=== PATIENT | female | born 1970 | race Caucasian/White ===

== ENCOUNTER → 2016-04-07 | Outpatient (REF) | payer MEDICARE, BC | LOC: M SFHCWAGY 08:53 | PROVIDERS: ATTEND Nurse Practitioner Women's Health | DX: Z12.4 Encounter for screening for malignant neoplasm of cervix (principal) ==

== ENCOUNTER → 2016-04-07 | Outpatient (CLI) | payer MEDICARE, BC ==
--- NOTE | 2016-04-14 09:33 | REPMRS ---
Patient History Benign excisional biopsy of the right breast, 2014. Benign stereotactic core biopsy of the right breast, 2012. Taking unspecified hormones for 8 years. Digital Woman Screen Mammo: April 07, 2016 - Exam #: [id number] Bilateral CC and MLO view(s) were taken. Technologist: Sarah Bosch, Technologist Prior study comparison: 2014, bilateral mammogram, performed at [facility]. FINDINGS: The breast tissue is heterogeneously dense. This may lower the sensitivity of mammography. There is no evidence of cancer on this mammogram. The previously noted metallic clip in the right retroareolar region is no longer visualized. No significant changes when compared with prior studies. ASSESSMENT: BI-RADS/ACR category 2 mammogram. Benign finding(s). Recommendation Routine screening mammogram of both breasts in 1 year (for women over age 40). This mammogram was interpreted with the aid of an FDA-approved computer-aided dectection system. Electronically Signed By: Gurinder Hu MD 04/14/16 0933
== END ==
LOC: M WHC 08:09
PROVIDERS: ATTEND Nurse Practitioner Women's Health
DX: R92.2 Inconclusive mammogram (principal); Z92.0 Personal history of contraception; Z12.4 Encounter for screening for malignant neoplasm of cervix
CPT/HCPCS: G0101; G0123; G0202

== ENCOUNTER → 2016-09-11 | Day surgery (SDC) | payer MEDICARE, BC ==
[~2016-09-11] MED LIST: AMAN100C18; BACL1TAB9; CLINDAMYCIN; DEXTROAMP; DIVA500T9; DULO1CAP3; LIDOCAINE 2% MDV 20 ML VIAL As Ordered ONE; LINZ145C; MICROGESTIN; MIDAZOLAM INJ 2 MG/2 ML VIAL (J2250) As Ordered ONE; OMEP20CA3; OXYCODON; TIZANIDINE; TRAM50TA2 PO; XIID5DRO; ceFAZolin 1GM INJ (J0690) As Ordered ONE; fentaNYL 100 MCG/2 ML INJECTION (J3010) As Ordered ONE
--- NOTE | 2016-09-11 14:45 | ROOPDOC ---
[facility] Report Of Operation Report of Operation DATE OF PROCEDURE: 09/11/16 PREOPERATIVE DIAGNOSES: Poor venous access, multiple sclerosis. POSTOPERATIVE DIAGNOSES: Poor venous access, multiple sclerosis. PROCEDURE: Ultrasound and fluoroscopic guided right internal jugular vein MRI implantable Port-A-Cath placement. SURGEON: Orlando Parkinson MD ULTRASOUND TESTER: Tamara Bowen electronics engineering technician INDICATION: Patient is a 45-year-old female with multiple sclerosis who requires multiple blood draws for evaluation of her medical treatment. Patient is having significant difficulty with blood draws due to the multiple cannulation's of the veins in the upper arms. Patient will undergo placement of a Port-A-Cath for access for blood draws and medication instillation. [Risks, benefits and alternative treatment options were discussed with the patient. Alternative treatment options included no intervention with continued conservative management. Risks included but were not limited to infection, bleeding, renal failure requiring hemodialysis, pneumothorax, hemothorax possible need for further open surgical intervention, cerebrovascular accident, myocardial infarction, pulmonary and was, DVT, loss of limb, loss of life, prolonged hospitalization and poor outcome.] Patient agrees and accepts these risks and consents to proceed. ANESTHESIA: Local with monitored anesthesia care. FLOURO TIME:0.1 CONTRAST: None IVF: 300 mL ESTIMATED BLOOD LOSS:Approximately 20 mL. HEPARIN: None PROTAMINE: None COMPLICATIONS: None. DRAINS: None SPECIMENS: None IMPLANTS: Right internal jugular vein MRI implantable Port-A-Cath DESCRIPTION OF PROCEDURE: Patient was taken to angiography suite, placed supine on the operating room table, and after performing a surgical timeout confirming the correct patient and procedure, the patient was prepped and draped in a standard surgical fashion. William Parkinson MD Sep 11, 2016 14:45
[2016-09-11 15:05] VITALS: BP 135/96
--- NOTE | 2016-10-16 10:43 | REPKIM ---
DATE OF PROCEDURE: 09/11/2016 PREOPERATIVE DIAGNOSES: Poor venous access, multiple sclerosis. POSTOPERATIVE DIAGNOSES: Poor venous access, multiple sclerosis. PROCEDURE: Ultrasound and fluoroscopic guided right internal jugular vein MRI implantable Port-A-Cath placement. SURGEON: Orlando Parkinson MD PHYSICIAN ANESTHESIOLOGIST: Tamara Bowen, mining technician. ANESTHESIA: Local with monitored anesthesia care. FLUORO TIME: 0.1 CONTRAST: None INTRAVENOUS FLUIDS: 300 mL ESTIMATED BLOOD LOSS: Approximately 20 mL. HEPARIN: None PROTAMINE: None COMPLICATIONS: None. DRAINS: None SPECIMENS: None IMPLANTS: Right internal jugular vein MRI implantable Port-A-Cath. INDICATION: Patient is a 45-year-old female with multiple sclerosis who requires multiple blood draws for evaluation of her medical treatment. Patient is having significant difficulty with blood draws due to the multiple cannulation's of the veins in the upper arms. Patient will undergo placement of a Port-A-Cath for access for blood draws and medication instillation. [Risks, benefits and alternative treatment options were discussed with the patient. Alternative treatment options included no intervention with continued conservative management. Risks included but were not limited to infection, bleeding, renal failure requiring hemodialysis, pneumothorax, hemothorax possible need for further open surgical intervention, cerebrovascular accident, myocardial infarction, pulmonary and was, DVT, loss of limb, loss of life, prolonged hospitalization and poor outcome.] Patient agrees and accepts these risks and consents to proceed. DESCRIPTION OF PROCEDURE: Patient was taken to angiography suite, placed supine on the operating room table, and after performing a surgical timeout confirming the correct patient and procedure, the patient was prepped and draped in a standard surgical fashion. The ultrasound was used to evaluate the right internal jugular vein, which was noted to be easily compressible, widely patent, and free of thrombus. The ultrasound was used to guide cannulation of the right internal jugular vein with concurrent real-time visualization of the entry of the micropuncture needle into the right internal jugular vein under ultrasound guidance with a hard copy image preserved. The micropuncture wire was advanced through the micropuncture needle, which was upsized to a micropuncture sheath. The wire was advanced through the sheath, which was then used to advance the introducer sheath into the right internal jugular vein. The catheter was then advanced through the right anterior chest wall after anesthetizing the overlying skin with 2% lidocaine. The catheter was advanced through the introducer sheath, which was then removed, and the catheter was positioned with the tip at the superior vena/right atrial junction. The catheter was cut to 18 cm, and then the hub was applied to the catheter. The pocket was created. The hub was placed in the pocket, and then the catheter was tested, which was noted to flush easily and aspirate easily. The Port-a-Cath was the flushed with heparinized saline. The incisions were then closed using #2-0 Vicryl to approximate the deeper layers and #3-0 Monocryl to approximate the skin in a running subcuticular fashion. The puncture wound in the right neck was closed using a #3-0 Monocryl suture in inverted interrupted fashion. Steri-Strips and dressings were applied. Patient tolerated the procedure well. All instrument, sponge, and needle counts were correct at the end of the case. There were no complications. Dr. Parkinson was present for and directed the entire care. Patient was transferred to the holding area and subsequently discharged in stable condition. RADIOLOGIC SUPERVISION INTERPRETATION: The ultrasound of the right internal jugular vein showed the right internal jugular vein to be wildly patent, easily compressible, and free of thrombus. The ultrasound was used to guide cannulation of the right internal jugular vein, after which the internal jugular vein was sequentially dilated under fluoroscopic guidance and an introducer sheath positioned. The catheter advanced through the introducer sheath and positioned with the tip in the superior vena cava/right atrial junction. Final fluoroscopic image showed the port and catheter to be in good position and good alignment with no pneumothorax or hemothorax. The Port-a-Cath is stable for use for access. The tip of the catheter was in the superior vena cava/right atrial junction.
== END | disposition home or self-care (01) ==
LOC: M SDC 11:43 → EDSTATUS 13:00
PROVIDERS: ATTEND Internal Medicine Medical Oncology
DX: G35 Multiple sclerosis (principal)
CPT/HCPCS: 36561; 76937; 77001; C1788; C1894; J0690; J2250; J3010

== ENCOUNTER 2016-11-07 09:35 | Emergency (ER) | payer MEDICARE, BC ==
[~2016-11-07] VITALS: Ht 157.5 cm; Wt 63.6 kg
[2016-11-07] MEDS ORDERED: DIVA500T9 (09:52)
[2016-11-07] MEDS ORDERED: CLINDAMYCIN (09:52)
[2016-11-07] MEDS ORDERED: TIZANIDINE (09:52)
[2016-11-07] MEDS ORDERED: XIID5DRO (09:52)
[2016-11-07] MEDS ORDERED: DEXTROAMP (09:52)
[2016-11-07] MEDS ORDERED: OMEP20CA3 (09:52)
[2016-11-07] MEDS ORDERED: AMAN100C18 (09:52)
[2016-11-07] MEDS ORDERED: OXYCODON (09:52)
[2016-11-07] MEDS ORDERED: LINZ145C (09:52)
[2016-11-07] MEDS ORDERED: DULO1CAP3 (09:52)
[2016-11-07] MEDS ORDERED: MICROGESTIN (09:52)
[2016-11-07] MEDS ORDERED: BACL1TAB9 (09:52)
[2016-11-07] MEDS ORDERED: PERCOCET 5MG/325MG TAB PO ONE (11:30)
[2016-11-07] MEDS ORDERED: TRAM50TA2 PO (12:25)
[2016-11-07 12:32] VITALS: BP 158/92
== END 2016-11-07 12:33 | disposition home or self-care (01) ==
LOC: M ED 09:35
DX: L97.219 Non-pressure chronic ulcer of right calf with unspecified severity (principal); G35 Multiple sclerosis

== ENCOUNTER → 2016-12-14 | Outpatient (REF) | payer MEDICARE, BC ==
[~2016-12-14] MED LIST changes: -LIDOCAINE 2% MDV 20 ML VIAL As Ordered ONE; -MIDAZOLAM INJ 2 MG/2 ML VIAL (J2250) As Ordered ONE; -ceFAZolin 1GM INJ (J0690) As Ordered ONE; -fentaNYL 100 MCG/2 ML INJECTION (J3010) As Ordered ONE
== END ==
LOC: M LAB REF 09:20
PROVIDERS: ATTEND Dermatology
DX: D23.61 Other benign neoplasm of skin of right upper limb, including shoulder (principal)

== ENCOUNTER → 2017-04-04 | Outpatient (REF) | payer MEDICARE, BC ==
[2017-04-04 14:26] LABS: ANION GAP 9 MEQ/L (8-16); BLOOD UREA NITROGEN 15 MG/DL (7-18); CALCIUM LEVEL 8.7 MG/DL (8.5-10.1); CARBON DIOXIDE LEVEL 26 MEQ/L (21-32); CHLORIDE LEVEL 105 MEQ/L (98-107); CREATININE FOR GFR 0.78 MG/DL (0.55-1.30); GLOMERULAR FILTRATION RATE > 60.0 (>58); GLUCOSE, FASTING 140 MG/DL (70-100); POTASSIUM SERUM 4.1 MEQ/L (3.5-5.1); SODIUM LEVEL 140 MEQ/L (136-145)
== END ==
LOC: M LAB REF 13:07
DX: I10 Essential (primary) hypertension (principal)
CPT/HCPCS: 80048

== ENCOUNTER → 2017-10-24 | Outpatient (REF) | payer MEDICARE, BC ==
[2017-10-24 14:15] LABS: CHOLESTEROL LEVEL 180 MG/DL (<200); HDL CHOLESTEROL 48 MG/DL (>40); LDL CHOLESTEROL 101 MG/DL (<100); NON-HDL-C 132 MG/DL; TRIGLYCERIDES LEVEL 157 MG/DL (<150)
[2017-10-24 15:52] LABS: ESTIMATED AVERAGE GLUCOSE 111 MG/DL (60-110); HEMOGLOBIN A1c 5.5 %
== END ==
LOC: M LAB REF 13:26
DX: F90.9 Attention-deficit hyperactivity disorder, unspecified type (principal); E78.00 Pure hypercholesterolemia, unspecified
CPT/HCPCS: 83036

== ENCOUNTER → 2017-10-30 | Outpatient (REF) | payer MEDICARE, BC | LOC: M LABNEURO 13:46 | DX: G35 Multiple sclerosis (principal) | CPT/HCPCS: 36415 ==

== ENCOUNTER 2017-12-17 18:17 | Emergency (ER) | payer MEDICARE, BC ==
[2017-12-17] MEDS ORDERED: MORPHINE 2 MG/ML 1ML SYRINGE (J2270) IV ×2 (19:45)
[2017-12-17 20:28] LABS: HEMOGLOBIN 12.7 g/dl (12.0-15.5); MEAN CORPUSCULAR HEMOGLOBIN 30.5 pg (27.0-33.0); MEAN CORPUSCULAR HGB CONC 34.3 g/dl (32.0-36.5); MEAN CORPUSCULAR VOLUME 88.9 fl (80.0-96.0); PLATELET COUNT, AUTOMATED 264 10^3/uL (150-450); RED BLOOD COUNT 4.16 10^6/uL (4.00-5.40); RED CELL DISTRIBUTION WIDTH 14.3 % (11.5-14.5); WHITE BLOOD COUNT 12.9 10^3/uL (4.0-10.0)
[2017-12-17 20:47] LABS: ERYTHROCYTE SEDIMENTATION RATE 24 mm/hr (0-20)
[2017-12-17 20:48] LABS: ANION GAP 8 MEQ/L (8-16); BLOOD UREA NITROGEN 16 MG/DL (7-18); C REACTIVE PROTEIN QUANTITATIV 1.36 MG/DL (0.00-0.30); CALCIUM LEVEL 8.8 MG/DL (8.5-10.1); CARBON DIOXIDE LEVEL 25 MEQ/L (21-32); CHLORIDE LEVEL 108 MEQ/L (98-107); CREATININE FOR GFR 0.87 MG/DL (0.55-1.30); GLOMERULAR FILTRATION RATE > 60.0 (>58); GLUCOSE, FASTING 120 MG/DL (70-100); POTASSIUM SERUM 4.1 MEQ/L (3.5-5.1); SODIUM LEVEL 141 MEQ/L (136-145)
[2017-12-17] MEDS: ACETAMINOPHEN TAB 650MG DOSE (2X325MG) PO ×2 (21:09)
[2017-12-17] MEDS ORDERED: ISOVUE-370 76% 100ML VIAL (Q9967) As Ordered ×2 (22:30)
[2017-12-18] MEDS: APIXABAN 5 MG TAB (ELIQUIS) PO ×4 (00:03→00:04)
[2017-12-18 00:30] LABS: INR 0.92; PARTIAL THROMBOPLASTIN TIME 24.1 SECONDS (25.4-37.6); PROTHROMBIN TIME 12.5 SECONDS (12.1-14.4)
[2017-12-18 00:48] LABS: TROPONIN I < 0.02 NG/ML (< 0.10)
[2017-12-18 00:48] LABS: NT-PRO BNP 27 PG/ML (<125)
[2017-12-18 09:55] LABS: DRVV SCREEN 39.4 SEC
[2017-12-18 09:57] LABS: PTT LUPUS TYPE ANTICOAG SCREEN 0.9 (0-1.2)
[2017-12-25 00:06] LABS: ANTI THROMBIN 3 ANTIGEN IMMUNO 73 % (72-124); ANTI THROMBIN 3 FUNCT ACTIVITY 106 % (75-135); CARDIOLIPIN IGA ANTIBODY <9 APL U/mL (0-11); CARDIOLIPIN IGG ANTIBODY <9 GPL U/mL (0-14); CARDIOLIPIN IGM ANTIBODY <9 MPL U/mL (0-12); PROTEIN C FUNCTIONAL ACTIVITY 139 % (73-180); PROTEIN S FUNCTIONAL ACTIVITY 83 % (63-140)
[2017-12-25 00:06] LABS: PHOSPHOLIPIDS LEVEL 253 mg/dL (150-250)
== END 2017-12-18 00:19 | disposition home or self-care (01) ==
LOC: M ED 12-18 00:19
DX: I82.601 Acute embolism and thrombosis of unspecified veins of right upper extremity (principal); I10 Essential (primary) hypertension; R91.8 Other nonspecific abnormal finding of lung field; F41.9 Anxiety disorder, unspecified; F32.9 Major depressive disorder, single episode, unspecified; G35 Multiple sclerosis; K22.70 Barrett's esophagus without dysplasia; Z94.84 Stem cells transplant status; Z79.01 Long term (current) use of anticoagulants; R06.02 Shortness of breath; Z79.899 Other long term (current) drug therapy; Z95.828 Presence of other vascular implants and grafts; Z92.21 Personal history of antineoplastic chemotherapy
CPT/HCPCS: Q9967

== ENCOUNTER 2018-03-22 09:00 | Outpatient (CLI) | payer MEDICARE, BC ==
[~2018-03-22] VITALS: Ht 162.6 cm; Wt 54.5 kg
[~2018-03-22 09:00] MED LIST changes: +ADDE30CA3 PO; +ELIQ5TAB PO; +LARI1TAB7; +LISI10TA4; +NITR50CA34; +REXU1TAB; +SODIUM CHLORIDE 0.9% INJ 10 ML SYR IV SCH; +TYSA1INJ IV; +ZONI50CA3
[2018-03-22 09:05] VITALS: BP 134/84
== END 2018-03-22 09:30 | disposition home or self-care (01) ==
LOC: M INFU 09:00
PROVIDERS: ATTEND Psychiatry & Neurology Neurology
DX: G35 Multiple sclerosis (principal)

== ENCOUNTER 2018-04-20 19:12 | Emergency (ER) | payer MEDICARE, BC ==
[~2018-04-20] VITALS: Ht 162.6 cm; Wt 63.6 kg
[~2018-04-20 19:12] MED LIST changes: -SODIUM CHLORIDE 0.9% INJ 10 ML SYR IV SCH
--- NOTE | 2018-04-20 20:26 | REPVR ---
EXAM: US Duplex Left Upper Extremity Veins, Limited EXAM DATE/TIME: 04/20/2018 8:09 PM CLINICAL HISTORY: 47 years old, female; Pain; Arn, upper; Left; Additional info: Pain/hx dvt TECHNIQUE: Real-time Duplex ultrasound of the Left Upper Extremity with 2-D george scale, color Doppler flow and spectral waveform analysis. Limited exam focused on the left upper extremity veins. COMPARISON: No relevant prior studies available. FINDINGS: Left deep veins: Unremarkable. Axillary and brachial veins are patent throughout without thrombus. Normal Doppler waveforms. Normal compressibility and/or augmentation response. Visualized internal jugular and subclavian veins are patent. Left superficial veins: Unremarkable. Visualized cephalic and basilic veins are patent without thrombus. Soft tissues: Unremarkable. IMPRESSION: No acute findings. No evidence of deep vein thrombosis. Electronically signed by: Andrew Gan On 04/20/2018 20:26:12 PM
[2018-04-20 21:32] VITALS: BP 121/79
[2018-04-20] MEDS ORDERED: IBUP-1022 PO (21:35)
--- NOTE | 2018-04-21 08:03 | REP ---
PA and lateral chest: There are no comparisons. The lung ortega are clear. Cardiac size is normal. The vincent, mediastinum, skeletal structures are unremarkable. There is a right IJ Jcyemu-Y-Qakp with the tip in the superior vena cava. Impression: There are no acute cardiopulmonary findings. Electronically Signed by Gurinder Vega MD 04/21/2018 07:55 A
--- NOTE | 2018-04-21 18:45 | ECGEPIP ---
Stationary ECG Study [facility] - ED Test Date: 2018-04-20 Pat Name: RIGOBERTO MORGAN Department: Room: - Gender: F Master Welder: HEATH : 1970 Requested By: LAURA HERNÁNDEZ PA-C. Order Number: [id number] Reading MD: Denisse Villar Measurements Intervals [place] Rate: 81 P: 20 SC: 134 QRS: 52 QRSD: 89 T: 28 QT: 366 QTc: 427 Interpretive Statements SINUS RHYTHM LOW VOLTAGE LIMB PRWP NO PRIOR FOR COMPARISON Electronically Signed On 04-21-2018 18:45:16 EDT by Denisse Villar
== END 2018-04-20 21:44 | disposition home or self-care (01) ==
LOC: M ED 19:12
DX: M79.622 Pain in left upper arm (principal); Z86.718 Personal history of other venous thrombosis and embolism; Z79.899 Other long term (current) drug therapy

== ENCOUNTER 2018-05-03 09:01 | Outpatient (CLI) | payer MEDICARE, BC ==
[~2018-05-03] VITALS: Ht 162.6 cm; Wt 54.5 kg
[~2018-05-03 09:01] MED LIST changes: +IBUP-1022 PO; +SODIUM CHLORIDE 0.9% INJ 10 ML SYR IV SCH
[2018-05-03 09:05] VITALS: BP 133/82
== END 2018-05-03 09:45 | disposition home or self-care (01) ==
LOC: M INFU 09:01
PROVIDERS: ATTEND Psychiatry & Neurology Neurology
DX: G35 Multiple sclerosis (principal)

== ENCOUNTER 2018-06-14 08:32 | Outpatient (CLI) | payer MEDICARE, BC ==
[~2018-06-14] VITALS: Ht 162.6 cm; Wt 54.5 kg
[2018-06-14 08:43] VITALS: BP 152/71
[2018-06-14] MEDS ORDERED: SODIUM CHLORIDE 0.9% INJ 10 ML SYR IV SCH (09:00)
[2018-06-14] MEDS ORDERED: ALTEPLASE 2 MG/2 ML VIAL (J2997 PER 1MG) XX ONE (09:00)
[2018-06-14 12:30] VITALS: BP 131/81
== END 2018-06-14 12:30 | disposition home or self-care (01) ==
LOC: M INFU 08:32
PROVIDERS: ATTEND Surgery Vascular Surgery
DX: G35 Multiple sclerosis (principal); T82.898A Other specified complication of vascular prosthetic devices, implants and grafts, initial encounter; Z45.2 Encounter for adjustment and management of vascular access device
CPT/HCPCS: 36593; J2997

== ENCOUNTER → 2018-06-14 | Outpatient (CLI) | payer MEDICARE, BC ==
[~2018-06-14] MED LIST changes: -DULO1CAP3; +DULO1CAP6; -OMEP20CA3; +OMEP20CA4; -SODIUM CHLORIDE 0.9% INJ 10 ML SYR IV SCH
== END ==
LOC: M INFU 08:30
PROVIDERS: ATTEND Psychiatry & Neurology Neurology
DX: G35 Multiple sclerosis (principal); Z53.9 Procedure and treatment not carried out, unspecified reason

== ENCOUNTER → 2018-08-15 | Outpatient (REF) | payer MEDICARE, BC ==
[2018-08-15 15:53] LABS: APPEARANCE, URINE HAZY (CLEAR); BACTERIA, URINE AUTO 1+ (NEGATIVE); BILIRUBIN, URINE AUTO NEGATIVE (NEGATIVE); BLOOD, URINE BLOOD NEGATIVE (NEGATIVE); COLOR, URINE YELLOW (YELLOW); GLUCOSE, URINE (UA) AUTO NEGATIVE (NEGATIVE); KETONE, URINE AUTO NEGATIVE (NEGATIVE); LEUKOCYTE ESTERASE, URINE AUTO NEGATIVE (NEGATIVE); NITRITE, URINE AUTO NEGATIVE (NEGATIVE); PROTEIN, URINE AUTO NEGATIVE (NEGATIVE); RBC, URINE AUTO 1 /HPF (0-3); SPECIFIC GRAVITY URINE AUTO 1.015 (1.002-1.035); SQUAMOUS EPITHELIAL CELL UR AU 0 /HPF (0-6); UROBILINOGEN, URINE AUTO 0.2 mg/dL (0.0-2.0); WBC, URINE AUTO 1 /HPF (0-3)
[2018-08-15 15:56] LABS: BASO % 0.1 % (0.0-1.0); EOS # 0.7 10^3/uL (0.0-0.50); EOS % 7.7 % (0.0-3.0); HEMATOCRIT 46.6 % (36.0-47.0); HEMOGLOBIN 15.2 g/dl (12.0-15.5); LYMPH # 2.3 10^3/uL (1.5-4.5); LYMPH % 27.2 % (24.0-44.0); MEAN CORPUSCULAR HEMOGLOBIN 30.3 pg (27.0-33.0); MEAN CORPUSCULAR HGB CONC 32.6 g/dl (32.0-36.5); MONO # 0.4 10^3/uL (0.0-0.8); MONO % 4.5 % (0.0-5.0); NEUTROPHILS # 5.1 10^3/uL (1.8-7.7); NEUTROPHILS % 60.3 % (36.0-66.0); PLATELET COUNT, AUTOMATED 377 10^3/uL (150-450); RED BLOOD COUNT 5.01 10^6/uL (4.00-5.40); WHITE BLOOD COUNT 8.4 10^3/uL (4.0-10.0)
[2018-08-15 16:17] LABS: ALT/SGPT 55 U/L (12-78); BILIRUBIN,DIRECT < 0.1 MG/DL (0.0-0.2); BILIRUBIN,TOTAL 0.3 MG/DL (0.2-1.0); BLOOD UREA NITROGEN 14 MG/DL (7-18); CALCIUM LEVEL 9.7 MG/DL (8.5-10.1); CARBON DIOXIDE LEVEL 26 MEQ/L (21-32); CHLORIDE LEVEL 103 MEQ/L (98-107); CREATININE FOR GFR 0.94 MG/DL (0.55-1.30); GLOMERULAR FILTRATION RATE > 60.0 (>58); GLUCOSE, FASTING 79 MG/DL (70-100); PHOSPHORUS LEVEL 3.3 MG/DL (2.5-4.9); POTASSIUM SERUM 4.2 MEQ/L (3.5-5.1); RHEUMATOID FACTOR QUANT < 10.0 IU/ML (<15.0); SODIUM LEVEL 137 MEQ/L (136-145); TOTAL PROTEIN 8.3 GM/DL (6.4-8.2)
[2018-08-15 16:48] LABS: ERYTHROCYTE SEDIMENTATION RATE 8 mm/hr (0-20)
[2018-08-17 14:16] LABS: ANTINUCLEAR ANTIBODIES DIRECT Negative (Negative); SJOGREN'S ANTI SS-A <0.2 AI (0.0-0.9); SJOGREN'S ANTI SS-B <0.2 AI (0.0-0.9)
== END ==
LOC: M LABNEURO 11:48
PROVIDERS: ATTEND Nurse Practitioner Family
DX: R21 Rash and other nonspecific skin eruption (principal)

== ENCOUNTER 2018-10-21 11:02 | Day surgery (SDC) | payer MEDICARE, BC ==
[~2018-10-21] VITALS: Ht 160 cm; Wt 64.9 kg
[~2018-10-21 11:02] MED LIST changes: +AMAN100T PO; +BACL1TAB9 PO; +DULO1CAP6 PO; +FLON1SPR; +LARI1TAB7 PO; +LISI10TA4 PO; +NITR50CA40 PO; +OCUVTAB4 PO; +REXU1TAB PO; +RIZA10TA4 PO; +ZONI25CA2 PO
[2018-10-21] MEDS ORDERED: PROPOFOL 500 MG/50 ML VIAL As Ordered ONE (11:33)
[2018-10-21] MEDS ORDERED: LIDOCAINE 2% INJ 100 MG/5 ML SDV (FOR ANES.) As Ordered ONE (11:33)
[2018-10-21] MEDS ORDERED: fentaNYL 100 MCG/2 ML INJECTION (J3010) As Ordered ONE (11:34)
[2018-10-21] MEDS: NS 1,000 ML IV ONE (12:00)
--- NOTE | 2018-10-21 12:27 | ROOR ---
Patient Name: Desirae Jones Procedure Date: 10/21/2018 12:10 PM Date of : 1970 Age: 47 Room: [facility] Gender: Female Note Status: Finalized Procedure: Upper Endoscopy + Biopsies Indications: Heartburn, Follow-up of Vernon's esophagus Providers: Serafin Brunson MD Referring MD: LUKE LIZ MD Requesting Provider: Medicines: Monitored Anesthesia Care Complications: No immediate complications. Procedure: Pre-Anesthesia Assessment: - The heart rate, respiratory rate, oxygen saturations, blood pressure, adequacy of pulmonary ventilation, and response to care were monitored throughout the procedure. The Endoscope was introduced through the mouth, and advanced to the second part of duodenum. The upper GI endoscopy was accomplished without difficulty. The patient tolerated the procedure well. Findings: The Z-line was irregular and was found 35 cm from the incisors. Multiple biopsies were obtained with cold forceps for evaluation to rule out Vernon's Esophagus randomly at the gastroesophageal junction. A small hiatal hernia was present. Localized mild inflammation characterized by erosions, erythema and aphthous ulcerations was found in the gastric antrum. Biopsies were taken with a cold forceps for Helicobacter pylori testing. The exam of the duodenum was otherwise normal. Impression: - Z-line irregular, 35 cm from the incisors. - Small hiatal hernia. - Mucosal changes suspicious for gastritis. Biopsied. - Multiple biopsies were obtained at the gastroesophageal junction. - The examination was otherwise normal. Recommendation: - Patient has a contact number available for emergencies. The signs and symptoms of potential delayed complications were discussed with the patient. Return to normal activities tomorrow. Written discharge instructions were provided to the patient. - High fiber diet. - Discharge patient to home. - Continue present medications. - Await pathology results. - Telephone GI clinic for pathology results in 1 week. - Repeat upper endoscopy for surveillance based on pathology results. - Return to referring physician. - The findings and recommendations were discussed with the patient's family. Serafin Brunson MD Serafin Brunson MD 10/21/2018 12:26:53 PM Electronically signed by Serafin Brunson MD Number of Addenda: 0 Note Initiated On: 10/21/2018 12:10 PM Estimated Blood Loss: Estimated blood loss: none.
--- NOTE | 2018-10-21 12:49 | ROOR ---
Patient Name: Desirae Jones Procedure Date: 10/21/2018 12:11 PM Date of : 1970 Age: 47 Room: [facility] Gender: Female Note Status: Finalized Procedure: Total Colonoscopy to Cecum Indications: High risk colon cancer surveillance: Personal history of colonic polyps Providers: Serafin Brunson MD Referring MD: LUKE LIZ MD Requesting Provider: Medicines: Monitored Anesthesia Care Complications: No immediate complications. Procedure: Pre-Anesthesia Assessment: - The heart rate, respiratory rate, oxygen saturations, blood pressure, adequacy of pulmonary ventilation, and response to care were monitored throughout the procedure. The Colonoscope was introduced through the anus and advanced to the cecum, identified by appendiceal orifice and ileocecal valve. The colonoscopy was performed without difficulty. The patient tolerated the procedure well. The quality of the bowel preparation was excellent. Findings: The perianal and digital rectal examinations were normal. Internal hemorrhoids were found during retroflexion. The hemorrhoids were small. No other significant abnormalities were identified in a careful examination of the remainder of the colon. The exam was otherwise without abnormality on direct and retroflexion views. Impression: - Internal hemorrhoids. - The examination was otherwise normal on direct and retroflexion views. - No specimens collected. - The exam was otherwise normal to the cecum. Recommendation: - Patient has a contact number available for emergencies. The signs and symptoms of potential delayed complications were discussed with the patient. Return to normal activities tomorrow. Written discharge instructions were provided to the patient. - High fiber diet. - Discharge patient to home. - Continue present medications. - Repeat colonoscopy in 5 years for screening purposes. - Return to referring physician. - The findings and recommendations were discussed with the patient's family. Serafin Brunson MD Serafin Brunson MD 10/21/2018 12:49:32 PM Electronically signed by Serafin Brunson MD Number of Addenda: 0 Note Initiated On: 10/21/2018 12:11 PM Estimated Blood Loss: Estimated blood loss: none.
[2018-10-21 13:26] VITALS: BP 132/78
== END 2018-10-21 13:39 | disposition home or self-care (01) ==
LOC: M OPP 11:02
PROVIDERS: ATTEND Internal Medicine Gastroenterology
DX: Z12.11 Encounter for screening for malignant neoplasm of colon (principal); Z86.010 Personal history of colon polyps; K64.8 Other hemorrhoids; K22.8 Other specified diseases of esophagus; K44.9 Diaphragmatic hernia without obstruction or gangrene; K31.89 Other diseases of stomach and duodenum; K22.70 Barrett's esophagus without dysplasia; R12 Heartburn; Z79.899 Other long term (current) drug therapy; Z88.8 Allergy status to other drugs, medicaments and biological substances; Z91.018 Allergy to other foods
CPT/HCPCS: 43239; 88305; G0105; J3010

== ENCOUNTER → 2019-01-01 | Outpatient (CLI) | payer MEDICARE, BC ==
[~2019-01-01] MED LIST changes: +NITR1CAP27 PO; -NITR50CA40 PO; +OMEP-172; -OMEP20CA4; -RIZA10TA4 PO; +RIZA10TA58 PO
--- NOTE | 2019-01-01 12:46 | REP ---
Clinical: Fibroid. Technique: Transabdominal pelvic ultrasound followed by transvaginal examination for better evaluation of the endometrium and adnexa with color Doppler evaluation of the ovaries . Findings: Enlarged anteverted myomatous uterus measures 10.9 x 6.7 x 7.6 cm and includes 5.9 x 4.8 x 5.9 cm fibroid extending to the fundus and 1.5 x 1.6 x 2.0 cm lower uterine segment fibroid. Findings cause mass effect on the endometrial canal which is incompletely evaluated and poorly defined. No obvious endocervical fluid noted. The bilateral ovaries are normal in appearance and vascularity without torsion. Right ovary measures 2.0 x 1.8 x 2.1 cm (RI 0.59). Left ovary measures 2.1 x 1.3 x 1.8 cm (RI 0.63). Bladder is normal in appearance and measures 8.4 x 4.7 x 6.1 cm. Impression: 1. Enlarged myomatous uterus. 2. Normal bilateral ovaries. Electronically Signed by Jarek Bower MD 01/01/2019 12:39 P
== END ==
LOC: M RAD 10:56
PROVIDERS: ATTEND Nurse Practitioner Women's Health
DX: N85.2 Hypertrophy of uterus (principal); D25.9 Leiomyoma of uterus, unspecified

== ENCOUNTER → 2020-07-01 | Outpatient (CLI) | payer MEDICARE, BC ==
[~2020-07-01] MED LIST changes: +LISI10TA22; +LISI10TA22 PO; -LISI10TA4; -LISI10TA4 PO; -OMEP-172; +OMEP1CAP73; +ZONI25CA13 PO; -ZONI25CA2 PO; +ZONI50CA11; -ZONI50CA3
--- NOTE | 2020-07-03 00:48 | ECWPNPC ---
PATIENT NAME: RIGOBERTO MORGAN : 1970 GENDER: FEMALE VISIT DATE: 07/01/2020 DISCHARGE DATE: 07/01/20937 VISIT LOCKED DATE TIME: PHYSICIAN: NINO XIAO RESOURCE: NINO XIAO REASON FOR APPOINTMENT 1. NECK/BACK HISTORY OF PRESENT ILLNESS DEPRESSION SCREENING: PHQ-2 (2015 EDITION) LITTLE INTEREST OR PLEASURE IN DOING THINGS?NOT AT ALL FEELING DOWN, DEPRESSED, OR HOPELESS?NOT AT ALL TOTAL SCORE0 GENERAL: HPI 49-YEAR-OLD FEMALE IN FOR INITIAL PAIN CONSULT REGARDING NECK AND BACK PAIN. PATIENT ADMITS THE PAIN HAS BEEN PRESENT FOR SEVERAL YEARS. PATIENT DOES HAVE A HISTORY OF MULTIPLE SCLEROSIS. PATIENT ADMITS TO BEING ON GABAPENTIN IN THE PAST AND STATES THAT IT ONLY MADE HER TIRED. SHE DOES ADMIT TO RADICULAR SYMPTOMS DOWN HER LEFT ARM.. - - -. FALL RISK SCREENING: SCREENING ONE FALLS REPORTED IN THE LAST YEAR WITH INJURY. PATIENT DENIES TREATMENT.. PAIN SCREENING: PATIENT HAS A COMPLAINT OF ACUTE OR CHRONIC PAIN :YES LOCATION OF PAIN:NECK, BOTH SHOULDERS, UPPER BACK INTENSITY OF PAIN (SCALE OF 1 TO 10):2 WHAT DOES YOUR PAIN FEEL LIKE:INTERMITTENT, THROBBING, SHOOTING ELECTRICAL SHOCKS, NUMBNESS DURATION:INTERMITTENT, AWAKENS FROM SLEEP PAIN IS INCREASED BY:ACTIVITIES, PROLONGED STANDING PAIN IS DECREASED BY:USE OF PAIN MEDICATIONS, SITTING, OTHERS MYOFASCIAL DUONG RUFF HELPS SOME NURSING NOTE: - - -. PAIN CENTER INTAKE QUESTIONS: DO YOU HAVE A HISTORY OF MRSA? :NO DO YOU TAKE A BLOOD THINNERS? :NO DO YOU HAVE ANY BLEEDING DISORDERS? :NO ANY NEW NUMBNESS OR WEAKNESS IN YOUR LEGS OR ARMS? :NO ANY PACEMAKER,DEFIBRILLATOR, OR DORSAL COLUMN STIMULATOR? :NO DO YOU HAVE ANY RASHES OR OPEN SORES? :YES FACIAL SORES . PATIENT IS BEING TREATED BY DERMATOLOGY. ARE YOU ALLERGIC TO IV DYE? :NO ARE YOU DIABETIC? :NO ANY NEW PROBLEMS WITH YOUR MEDICATIONS? :NO HAVE YOU RECEIVED A VACCINE IN THE PAST 30 DAYS? :NO SECOND COVID VACCINATION 05/18/2020 DO YOU PLAN TO RECEIVE A VACCINE IN THE NEXT 21 DAYS? :NO DO YOU NEED ANY PRESCRIPTION? :NO DO YOU TAKE ANY IMMUNOSUPPRESSIVE MEDICATIONS? :YES LAST DOSE 2017 AND PATIENT IS IN THE PROCESS OF RESTARTING THE IMMUNOSUPPRESSANTS, TYSARBRI. IS THERE A CHANCE YOU COULD BE ? :NO ARE YOU BREAST FEEDING? :NO CURRENT MEDICATIONS TAKING BACLOFEN 20 MG TABLET 2 TABLETS WITH FOOD OR MILK ORALLY THREE TIMES A DAY TAKING AMANTADINE HCL 100 MG CAPSULE 2 CAPSULES ORALLY TWICE A DAY TAKING ADDERALL XR 30 MG CAPSULE EXTENDED RELEASE 24 HOUR 1 CAPSULE IN THE MORNING ORALLY ONCE A DAY TAKING MAXALT 10 MG TABLET 1 TABLET ORALLY NEEDED FOR HEADAHE TAKING DULOXETINE HCL 60 MG CAPSULE DELAYED RELEASE PARTICLES 1 CAPSULE ORALLY TWICE DAILY TAKING LISINOPRIL 10 MG TABLET 1 TABLET ORALLY ONCE A DAY TAKING AMANTADINE HCL 100 MG CAPSULE 1 CAPSULE ORALLY TWICE DAILY TAKING MULTIVITAMIN - TABLET 1 TABLET ORALLY ONCE A DAY TAKING D3 MAXIMUM STRENGTH 125 MCG (5000 UT) CAPSULE DIRECTED ORALLY TAKING BLACK ELDERBERRY(VELASQUEZ-FLOWER) 575 MG CAPSULE 2000 MG DIRECTED ORALLY TAKING FISH OIL 1200 MG CAPSULE 1 CAPSULE ORALLY FOUR TIMES DAILY TAKING ASHWAGANDHA 500 MG CAPSULE DIRECTED ORALLY TAKING B12 FOLATE 800-800 MCG CAPSULE 1000 MG DIRECTED ORALLY ONCE DAILY TAKING FIBER - POWDER DIRECTED ORALLY TAKING REXULTI 0.5 MG TABLET 1 TABLET ORALLY ONCE A DAY TAKING NITROFURANTOIN MACROCRYSTAL 50 MG CAPSULE TAKE ONE CAPSULE BY MOUTH EVERY DAY NOT-TAKING TIZANIDINE HCL 4 MG TABLET 1 TABLET NEEDED ORALLY EVERY 8 HRS NOT-TAKING OCREVUS 300 MG/10ML SOLUTION DIRECTED INTRAVENOUS NOT-TAKING ZONISAMIDE 100 MG CAPSULE 1 CAPSULE ORALLY ONCE A DAY NOT-TAKING PERCOCET 7.5-325 MG TABLET 1 TABLET NEEDED ORALLY EVERY 6 HRS NOT-TAKING ZONISAMIDE 50 MG CAPSULE 1 CAPSULE ORALLY TWICE A DAY NOT-TAKING METHYLPREDNISOLONE 1 TAB ORAL 125MG NOT-TAKING LISINOPRIL 10 MG TABLET 1 TAB ORALLY DAILY NOT-TAKING CYMBALTA 60 MG CAPSULE DELAYED RELEASE PARTICLES 2 CAPSULES ORALLY ONCE A DAY NOT-TAKING NITROFURANTOIN 50 MG TABLET 1 TAB(S) ORALLY ONCE A DAY NOT-TAKING ZONISAMIDE 100 MG CAPSULE TAKE ONE CAPSULE BY MOUTH AT BEDTIME ORAL NOT-TAKING MICROGESTIN FE 1.5/30 1.5-30 MG-MCG TABLET 1 TABLET ORALLY DAILY, PT SKIPS PLACEBE PILLS NOT-TAKING ADDERALL 30 MG TABLET 1 TABLET ORALLY THREE TIMES DAILY NEEDED, NOTES: MAUREEN NOT-TAKING XIIDRA 5 % SOLUTION 1 DROP INTO AFFECTED EYE OPHTHALMIC TWICE A DAY NOT-TAKING OMEPRAZOLE 40 MG CAPSULE DELAYED RELEASE 1 CAPSULE ORALLY ONCE A DAY NOT-TAKING LINZESS 145 MCG CAPSULE 1 CAPSULE ORALLY ONCE A DAY NOT-TAKING DEPAKOTE 500 MG TABLET DELAYED RELEASE 1 TABLET ORALLY TWICE A DAY NOT-TAKING TYSABRI 300 MG/15ML CONCENTRATE PER ORDER INTRAVENOUS ONCE A MONTH NOT-TAKING TORSEMIDE 10 MG TABLET 1 TABLET ORALLY ONCE A DAY NOT-TAKING DULERA 100 MCG/5MCG 2 PUFFS ORALLY BID MEDICATION LIST REVIEWED AND RECONCILED WITH THE PATIENT PAST MEDICAL HISTORY RELAPSINGAND REMITTING MS GEN. FATIGUE R/T MS HIGH-GRADE HEADACHES ACNE DEPRESSION URINARY RETENTION SAW DR. VELASCO. 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 1 SON(S) , 1 DAUGHTER(S) - HEALTHY. NO KNOWN HX OF BREAST OR OVARIAN CA. DENIES FAMILY HISTORY OF SKIN CANCER. SOCIAL HISTORY GENERAL: TOBACCO USE ARE YOU A:NONSMOKER LATEX QUESTIONNAIRE LATEX ALLERGY : HAVE YOU EVER DEVELOPED ANY TYPE OF REACTION AFTER HANDLING LATEX PRODUCTS SUCH RUBBER GLOVES, CONDOMS, DIAPHRAGMS, BALLOONS, SOCKS, OR UNDERWEAR?YES LATEX ALLERGY : HAVE YOU EVER DEVELOPED ANY TYPE OF REACTION DURING OR AFTER DENTAL APPOINTMENT, VAGINAL/RECTAL EXAMINATION, SURGICAL PROCEDURE, OR ANY OTHER EXPOSURE?NO LATEX RISK : HAVE YOU EVER HAD ANY DIFFICULTY BREATHING OR HIVES AFTER EATING OR HANDLING ANY FRUITS, OR VEGETABLES; SUCH KIWI, BANANAS, STONE FRUITS, OR CHESTNUTSYES - PLEASE INDICATE : KIWI ANAPHYLACTIC LATEX RISK : DO YOU HAVE A PREVIOUS PERSONAL HISTORY OF MORE THAN NINE SURGERIES, SPINA BIFIDA, OR REPEATED CATHERIZATIONS? NO LATEX RISK : ARE YOU FREQUENTLY EXPOSED TO LATEX PRODUCTS IN YOUR OCCUPATION?NO DATE ASKED : 07/01/2020 ALCOHOL USE: OCCASIONAL. BMI CARE GOAL FOLLOW-UP ABOVE NORMAL BMI FOLLOW-UPWEIGHT MONITORING CAFFEINE CAFFEINE USE?YES HOW OFTEN AND HOW MUCH? 1 CUP OF COFFEE DAILY SEXUAL HX HAD SEX IN THE LAST 12 MONTHS (VAGINAL, ORAL, OR ANAL)?YES WITHMEN ONLY USE PROTECTION?NO LMP:TAKES ACTIVE BCP HAVE YOU EVER HAD AN STD?YES OTHER?YES HERPES?NO SYPHILIS?NO GC?NO CHLAMYDIA?NO HIV / HEP-C SCREENING HIV TEST OFFERED TO PATIENT:YES DATE OFFERED:04/07/2016 TEST ACCEPTED:NO REASON:PATIENT DECLINED CONGREGATIONAL [id number] NONE LANGUAGE MOHAWK. EDUCATION LEVEL OF EDUCATION:FINISHED COLLEGE LEARNING BARRIERS / SPECIAL NEEDS CHANGE FROM LAST VISIT?NO BARRIERS TO LEARNING?NO HEARING IMPAIRED?NO VISION IMPAIRED?YES :CORRECTIVE LENSES CONTACTS COGNITIVELY IMPAIRED?NO READINESS TO LEARN?YES LEARNING PREFERENCES?NO LEARNING CAPABILITIES PRESENT?YES EMOTIONAL BARRIERS?NO SPECIAL DEVICES?NO QUILL LAYER NEEDED?NO OCCUPATION: DISABILITY. DIET: REGULAR. EXERCISE: NONE. MARITAL STATUS: . OTHERS AT HOME: SPOUSE, CHILD. HOSPITALIZATION/MAJOR DIAGNOSTIC PROCEDURE SURGERY RELATED REVIEW OF SYSTEMS CONSTITUTIONAL: ANY RECENT FEVER NO . CHILLS NO . WEIGHT CHANGE OF UNKNOWN REASONS NO . MUSCULOSKELETAL: ANY UNUSUAL JOINT PAIN OR SWELLING NOT MENTIONED NO . SYSTEMIC LUPUS NO . ANY NEUROMUSCULAR DISORDER NOT MENTIONED NO . LYME DISEASE NO . GASTROENTEROLOGY: ANY NEW CHANGE IN BOWEL CONTROL? NO . HISTORY OF LIVER DISORDER NOT MENTIONED NO . HISTORY OF UNUSUAL ABDOMINAL PAIN OR CRAMPING NOT MENTIONED NO . NO CONSTIPATION. GENITOURINARY: ANY NEW CHANGE IN BLADDER CONTROL? NO . ANY RENAL/KIDNEY CONDITON NOT MENTIONED NO . NEUROLOGY: HISTORY OF TBI NOT MENTIONED NO . OTHER NEW NUMBNESS OR PAIN PATTERNS NOT MENTIONED NO . NEW ONSET DIZZINESS OR NEUROLOGICAL CHANGES NOT MENTIONED NO . HISTORY OF SEVERE HEADACHES NOT MENTIONED NO . HISTORY OF STROKE OR NEUROLOGICAL DISORDER NOT MENTIONED NO . CARDIOLOGY: HEART SURGERY NO . CONGESTIVE HEART FAILURE/FLUID OVERLOAD NOT MENTIONED NO . HISTORY OF CHEST PAIN,IRREGULAR HEART BEAT NOT MENTIONED NO . RESPIRATORY: SHORTNESS OF BREATH ON EXERTION, WHEEZES, UNUSUAL COUGH NOT MENTIONED NO . ENDOCRINOLOGY: ADRENAL GLAND OR THYROID DISORDERS NOT MENTIONED NO . UNUSUAL URINATION, DIZZINESS OR LETHARGY NOT MENTIONED NO . VITAL SIGNS WT 143.0 LBS, HT 63 IN, BMI 25.33 INDEX, BP 129/78 MM HG, HR 80 /MIN, RR 18 /MIN, TEMP 98.6 F, OXYGEN SAT % 98%, SAFE IN ENV? (Y/N) YES, NA INITIALS AW 0844, REVIEWED BY: ASCENCION SEGOVIA MA. EXAMINATION GENERAL EXAMINATION: GENERALNO ACUTE DISTRESS, WELL NOURISHED AND HYDRATED. PSYCHAPPROPRIATE MOOD AND AFFECT . NECK:DENIES POINT TENDERNESS ALONG CERVICAL SPINE, SURROUNDING SKIN SHOWS NO ERYTHEMA, ECCHYMOSIS, INCREASED WARMTH, AND/OR SKIN ERUPTIONS NOTED. . LUNGS:CLEAR TO AUSCULTATION BILATERALLY, NO WHEEZES, RHONCHI, RALES. HEART:NO MURMURS, REGULAR RATE AND RHYTHM. ASSESSMENTS CERVICAL DISC DISORDER - M50.90 (PRIMARY) TREATMENT CERVICAL DISC DISORDER START LYRICA CAPSULE, 50 MG, 1 CAPSULE, ORALLY, TWICE DAILY, 30 DAY(S), 60 NOTES: 49-YEAR-OLD FEMALE IN FOR INITIAL PAIN CONSULT REGARDING NECK AND BACK PAIN WITH RADICULOPATHY. GIVEN PRESENTING SYMPTOMS RECOMMENDED STARTING LYRICA 50 MG TWICE A DAY WITH FOLLOW-UP IN ONE MONTH TO DETERMINE EFFICACY OF TREATMENT. PATIENT HAS EXPRESSED UNDERSTANDING OF AND WAS IN AGREEMENT WITH TREATMENT PLAN. GIVEN TIME TO ASK QUESTIONS AND EXPRESS CONCERNS. ISTOP REGISTRY REVIEWED AND DEMONSTRATES COMPLLIANCE. (REF # [id number] ) PRINTED INFORMATION ON LYRICA FOR PATIENT GUICHO SOWMYA. PROCEDURE CODES FA211 ESTABILISHED PATIENT [facility] CHARGE DISPOSITION & COMMUNICATION FOLLOW UP 4 WEEKS (REASON: NEW MEDICATION ) ELECTRONICALLY SIGNED BY CORAL ESQUIVEL ON 07/02/2020 AT 08:22 AM EDT DISCLAIMER : THIS IS A VISIT SUMMARY EXTRACTED FROM THE [employer] CHART. IT IS NOT A COPY OF THE [employer] PROGRESS NOTE. [place]
== END ==
LOC: M PAIN 08:30
PROVIDERS: ATTEND Family Medicine
DX: M50.90 Cervical disc disorder, unspecified, unspecified cervical region (principal); G35 Multiple sclerosis; R53.83 Other fatigue; L70.9 Acne, unspecified; F32.9 Major depressive disorder, single episode, unspecified; R33.9 Retention of urine, unspecified; I83.90 Asymptomatic varicose veins of unspecified lower extremity; R13.10 Dysphagia, unspecified; G43.909 Migraine, unspecified, not intractable, without status migrainosus; M54.5 Low back pain; Z94.84 Stem cells transplant status; Z79.899 Other long term (current) drug therapy; Z88.1 Allergy status to other antibiotic agents; Z88.2 Allergy status to sulfonamides; Z91.018 Allergy to other foods

== ENCOUNTER → 2020-07-29 | Outpatient (CLI) | payer MEDICARE, BC ==
--- NOTE | 2020-07-31 03:47 | ECWPNPC ---
PATIENT NAME: RIGOBERTO MORGAN : 1970 GENDER: FEMALE VISIT DATE: 07/29/2020 DISCHARGE DATE: 07/29/20 1029 VISIT LOCKED DATE TIME: PHYSICIAN: NINO XIAO RESOURCE: NINO XIAO REASON FOR APPOINTMENT 1. NEW MEDICATION HISTORY OF PRESENT ILLNESS GENERAL: HPI 49-YEAR-OLD FEMALE IN FOR CHRONIC PAIN FOLLOW-UP. SHE RATES HER PAIN CURRENTLY AT A 1 OUT OF 10. PATIENT FEELS HER MEDICATIONS ARE HELPFUL AND DENIES MED SIDE EFFECTS AT THIS TIME.. -. FALL RISK SCREENING: SCREENING ONE FALL REPORTED IN THE LAST YEAR WITH INJURY. PATIENT DENIES SEEKING MEDICAL TREATMENT.. PAIN SCREENING: PATIENT HAS A COMPLAINT OF ACUTE OR CHRONIC PAIN :YES LOCATION OF PAIN:NECK, UPPER BACK, MID BACK, LOW BACK INTENSITY OF PAIN (SCALE OF 1 TO 10):1 AVERAGE IS 1-2. PAIN IN THE EVENING IS UP TO A 9. WHAT DOES YOUR PAIN FEEL LIKE:ACHING, BURNING, CONTINOUS, SHARP, TENDER, THROBBING, SORE DURATION:CONTINOUS, CONSTANT, MAINLY DURING THE NIGHT, AWAKENS FROM SLEEP PAIN IS INCREASED BY:ACTIVITIES, PROLONGED STANDING PAIN IS DECREASED BY:OTHERS REPOSITIONING AND VOLTAREN GEL NURSING NOTE: -. PAIN CENTER INTAKE QUESTIONS: DO YOU HAVE A HISTORY OF MRSA? :NO DO YOU TAKE A BLOOD THINNERS? :NO DO YOU HAVE ANY BLEEDING DISORDERS? :NO ANY NEW NUMBNESS OR WEAKNESS IN YOUR LEGS OR ARMS? :NO ANY PACEMAKER,DEFIBRILLATOR, OR DORSAL COLUMN STIMULATOR? :NO DO YOU HAVE ANY RASHES OR OPEN SORES? :NO ARE YOU ALLERGIC TO IV DYE? :NO ARE YOU DIABETIC? :NO ANY NEW PROBLEMS WITH YOUR MEDICATIONS? :NO HAVE YOU RECEIVED A VACCINE IN THE PAST 30 DAYS? :NO SECOND COVID VACCINATION 05/18/2020 DO YOU PLAN TO RECEIVE A VACCINE IN THE NEXT 21 DAYS? :NO DO YOU NEED ANY PRESCRIPTION? :YES LYRICA DO YOU TAKE ANY IMMUNOSUPPRESSIVE MEDICATIONS? :YES LAST DOSE 2017 AND PATIENT IS IN THE PROCESS OF RESTARTING THE IMMUNOSUPPRESSANTS, TYSARBRI. IS THERE A CHANCE YOU COULD BE ? :NO ARE YOU BREAST FEEDING? :NO CURRENT MEDICATIONS TAKING BACLOFEN 20 MG TABLET 2 TABLETS WITH FOOD OR MILK ORALLY THREE TIMES A DAY TAKING AMANTADINE HCL 100 MG CAPSULE 2 CAPSULES ORALLY TWICE A DAY TAKING ADDERALL XR 30 MG CAPSULE EXTENDED RELEASE 24 HOUR 1 CAPSULE IN THE MORNING ORALLY ONCE A DAY TAKING MAXALT 10 MG TABLET 1 TABLET ORALLY NEEDED FOR HEADAHE TAKING DULOXETINE HCL 60 MG CAPSULE DELAYED RELEASE PARTICLES 1 CAPSULE ORALLY TWICE DAILY TAKING LISINOPRIL 10 MG TABLET 1 TABLET ORALLY ONCE A DAY TAKING AMANTADINE HCL 100 MG CAPSULE 1 CAPSULE ORALLY TWICE DAILY TAKING MULTIVITAMIN - TABLET 1 TABLET ORALLY ONCE A DAY TAKING D3 MAXIMUM STRENGTH 125 MCG (5000 UT) CAPSULE DIRECTED ORALLY TAKING BLACK ELDERBERRY(VELASQUEZ-FLOWER) 575 MG CAPSULE 2000 MG DIRECTED ORALLY TAKING FISH OIL 1200 MG CAPSULE 1 CAPSULE ORALLY FOUR TIMES DAILY TAKING ASHWAGANDHA 500 MG CAPSULE DIRECTED ORALLY TAKING B12 FOLATE 800-800 MCG CAPSULE 1000 MG DIRECTED ORALLY ONCE DAILY TAKING FIBER - POWDER DIRECTED ORALLY TAKING REXULTI 0.5 MG TABLET 1 TABLET ORALLY ONCE A DAY TAKING NITROFURANTOIN MACROCRYSTAL 50 MG CAPSULE TAKE ONE CAPSULE BY MOUTH EVERY DAY TAKING LYRICA 50 MG CAPSULE 1 CAPSULE ORALLY TWICE DAILY NOT-TAKING TIZANIDINE HCL 4 MG TABLET 1 TABLET NEEDED ORALLY EVERY 8 HRS NOT-TAKING OCREVUS 300 MG/10ML SOLUTION DIRECTED INTRAVENOUS NOT-TAKING ZONISAMIDE 100 MG CAPSULE 1 CAPSULE ORALLY ONCE A DAY NOT-TAKING PERCOCET 7.5-325 MG TABLET 1 TABLET NEEDED ORALLY EVERY 6 HRS NOT-TAKING ZONISAMIDE 50 MG CAPSULE 1 CAPSULE ORALLY TWICE A DAY NOT-TAKING METHYLPREDNISOLONE 1 TAB ORAL 125MG NOT-TAKING LISINOPRIL 10 MG TABLET 1 TAB ORALLY DAILY NOT-TAKING CYMBALTA 60 MG CAPSULE DELAYED RELEASE PARTICLES 2 CAPSULES ORALLY ONCE A DAY NOT-TAKING NITROFURANTOIN 50 MG TABLET 1 TAB(S) ORALLY ONCE A DAY NOT-TAKING ZONISAMIDE 100 MG CAPSULE TAKE ONE CAPSULE BY MOUTH AT BEDTIME ORAL NOT-TAKING MICROGESTIN FE 1.5/30 1.5-30 MG-MCG TABLET 1 TABLET ORALLY DAILY, PT SKIPS PLACEBE PILLS NOT-TAKING ADDERALL 30 MG TABLET 1 TABLET ORALLY THREE TIMES DAILY NEEDED, NOTES: MAUREEN NOT-TAKING XIIDRA 5 % SOLUTION 1 DROP INTO AFFECTED EYE OPHTHALMIC TWICE A DAY NOT-TAKING OMEPRAZOLE 40 MG CAPSULE DELAYED RELEASE 1 CAPSULE ORALLY ONCE A DAY NOT-TAKING LINZESS 145 MCG CAPSULE 1 CAPSULE ORALLY ONCE A DAY NOT-TAKING DEPAKOTE 500 MG TABLET DELAYED RELEASE 1 TABLET ORALLY TWICE A DAY NOT-TAKING TYSABRI 300 MG/15ML CONCENTRATE PER ORDER INTRAVENOUS ONCE A MONTH NOT-TAKING TORSEMIDE 10 MG TABLET 1 TABLET ORALLY ONCE A DAY NOT-TAKING DULERA 100 MCG/5MCG 2 PUFFS ORALLY BID MEDICATION LIST REVIEWED AND RECONCILED WITH THE PATIENT PAST MEDICAL HISTORY RELAPSINGAND REMITTING MS GEN. FATIGUE R/T MS HIGH-GRADE HEADACHES ACNE DEPRESSION URINARY RETENTION SAW DR. VELASCO. 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 PT HAS HAD FIBROID UTERUS SINCE AT LEAST 2007 MULTIPLE SCLEROSIS -KYLE JOSH MIGRAINE WITHOUT AURA MALAISE AND FATIGUE NOCTUMAL MUSCLE SPASM LOW BACK PAIN ALLERGIES ERYTHROMYCIN TOPICAL: HIVES - ALLERGY SULFA (FOR ALLERGY USE ONLY): HIVES - ALLERGY KIWI: ANAPHYLAXIS - ALLERGY SOCIAL HISTORY GENERAL: TOBACCO USE ARE YOU A:NONSMOKER LATEX QUESTIONNAIRE LATEX ALLERGY : HAVE YOU EVER DEVELOPED ANY TYPE OF REACTION AFTER HANDLING LATEX PRODUCTS SUCH RUBBER GLOVES, CONDOMS, DIAPHRAGMS, BALLOONS, SOCKS, OR UNDERWEAR?NO LATEX ALLERGY : HAVE YOU EVER DEVELOPED ANY TYPE OF REACTION DURING OR AFTER DENTAL APPOINTMENT, VAGINAL/RECTAL EXAMINATION, SURGICAL PROCEDURE, OR ANY OTHER EXPOSURE?NO LATEX RISK : HAVE YOU EVER HAD ANY DIFFICULTY BREATHING OR HIVES AFTER EATING OR HANDLING ANY FRUITS, OR VEGETABLES; SUCH KIWI, BANANAS, STONE FRUITS, OR CHESTNUTSYES - PLEASE INDICATE : KIWI ANAPHYLACTIC LATEX RISK : DO YOU HAVE A PREVIOUS PERSONAL HISTORY OF MORE THAN NINE SURGERIES, SPINA BIFIDA, OR REPEATED CATHERIZATIONS? NO LATEX RISK : ARE YOU FREQUENTLY EXPOSED TO LATEX PRODUCTS IN YOUR OCCUPATION?NO DATE ASKED : 07/29/2020 ALCOHOL USE: OCCASIONAL. BMI CARE GOAL FOLLOW-UP ABOVE NORMAL BMI FOLLOW-UPWEIGHT MONITORING RECREATIONAL DRUG USE DRUG USE?NO CAFFEINE CAFFEINE USE?YES HOW OFTEN AND HOW MUCH? 1 CUP OF COFFEE DAILY SEXUAL HX HAD SEX IN THE LAST 12 MONTHS (VAGINAL, ORAL, OR ANAL)?YES WITHMEN ONLY USE PROTECTION?NO LMP:TAKES ACTIVE BCP HAVE YOU EVER HAD AN STD?YES OTHER?YES HERPES?NO SYPHILIS?NO GC?NO CHLAMYDIA?NO HIV / HEP-C SCREENING HIV TEST OFFERED TO PATIENT:YES DATE OFFERED:04/07/2016 TEST ACCEPTED:NO REASON:PATIENT DECLINED WORSHIP [id number] NONE LANGUAGE ROMANSH. EDUCATION LEVEL OF EDUCATION:FINISHED COLLEGE LEARNING BARRIERS / SPECIAL NEEDS CHANGE FROM LAST VISIT?NO BARRIERS TO LEARNING?NO HEARING IMPAIRED?NO VISION IMPAIRED?YES :CORRECTIVE LENSES CONTACTS COGNITIVELY IMPAIRED?NO READINESS TO LEARN?YES LEARNING PREFERENCES?NO LEARNING CAPABILITIES PRESENT?YES EMOTIONAL BARRIERS?NO SPECIAL DEVICES?NO CARETAKER GROUNDS NEEDED?NO OCCUPATION: DISABILITY. DIET: REGULAR. EXERCISE: NONE. MARITAL STATUS: . OTHERS AT HOME: SPOUSE, CHILD. REVIEW OF SYSTEMS CONSTITUTIONAL: ANY RECENT FEVER NO . CHILLS NO . WEIGHT CHANGE OF UNKNOWN REASONS NO . GASTROENTEROLOGY: NEW UNEXPLAINABLE CHANGES IN BOWEL CONTROL NO . CONSTIPATION NO . GENITOURINARY: ANY NEW CHANGE IN BLADDER CONTROL? NO . NEUROLOGY: NEW ONSET DIZZINESS OR NEUROLOGICAL CHANGES NOT MENTIONED NO . NEW NUMBNESS OR PAIN PATTERNS NOT MENTIONED AND PERTINENT TO TODAY'S VISIT NO . CARDIOLOGY: NEW CHEST PRESSURE NO . PATIENT DENIES NO . RESPIRATORY: UNEXPLAINABLE COUGH NO . NEW SHORTNESS OF BREATH NO . VITAL SIGNS WT 138.2 LBS, HT 63 IN, BMI 24.48 INDEX, BP 137/71 MM HG, HR 70 /MIN, RR 18 /MIN, TEMP 98.1 F, OXYGEN SAT % 97%, SAFE IN ENV? (Y/N) YES, NA INITIALS AW 1006, REVIEWED BY: ASCENCION SEGOVIA MA. EXAMINATION GENERAL EXAMINATION: GENERALNO ACUTE DISTRESS, WELL NOURISHED AND HYDRATED. PSYCHAPPROPRIATE MOOD AND AFFECT . LUNGS:CLEAR TO AUSCULTATION BILATERALLY, NO WHEEZES, RHONCHI, RALES. HEART:NO MURMURS, REGULAR RATE AND RHYTHM. ASSESSMENTS CERVICAL DISC DISORDER - M50.90 (PRIMARY), RISK: (NULL) TREATMENT CERVICAL DISC DISORDER INCREASE LYRICA CAPSULE, 75 MG, 1 CAPSULE, ORALLY, TWICE DAILY, 30 DAY(S), 60 NOTES: 49-YEAR-OLD FEMALE IN FOR CHRONIC PAIN FOLLOW-UP. GIVEN PRESENTING SYMPTOMS RECOMMEND INCREASING LYRICA TO 75 MG 1 CAPSULE TWICE DAILY WITH FOLLOW-UP IN 2 MONTHS TO DETERMINE EFFICACY OF TREATMENT. PATIENT HAS EXPRESSED UNDERSTANDING OF AND WAS IN AGREEMENT WITH TREATMENT PLAN. GIVEN TIME ASKED QUESTIONS AND EXPRESS CONCERNS. ISTOP REGISTRY REVIEWED AND DEMONSTRATES COMPLLIANCE. (REF #[id number] ) BRINGS IN MEDICATIONS WHICH IS APPROPRIATE FOR WHAT WAS DISPENSED. PROCEDURE CODES FA211 ESTABILISHED PATIENT [facility] CHARGE DISPOSITION & COMMUNICATION FOLLOW UP 2 MONTHS (REASON: MED INCREASE ) ELECTRONICALLY SIGNED BY CORAL ESQUIVEL ON 07/30/2020 AT 09:23 AM EDT DISCLAIMER : THIS IS A VISIT SUMMARY EXTRACTED FROM THE [employer] CHART. IT IS NOT A COPY OF THE [employer] PROGRESS NOTE. [place]
== END ==
LOC: M PAIN 10:00
PROVIDERS: ATTEND Family Medicine
DX: M50.90 Cervical disc disorder, unspecified, unspecified cervical region (principal); G35 Multiple sclerosis; L70.9 Acne, unspecified; F32.9 Major depressive disorder, single episode, unspecified; R33.9 Retention of urine, unspecified; I83.90 Asymptomatic varicose veins of unspecified lower extremity; K22.70 Barrett's esophagus without dysplasia; R13.10 Dysphagia, unspecified; G43.909 Migraine, unspecified, not intractable, without status migrainosus; M54.5 Low back pain; R53.83 Other fatigue; R53.81 Other malaise; Z79.899 Other long term (current) drug therapy; Z88.1 Allergy status to other antibiotic agents; Z88.2 Allergy status to sulfonamides; Z91.018 Allergy to other foods

== ENCOUNTER 2020-08-16 08:02 | Outpatient (CLI) | payer MEDICARE, BC ==
[~2020-08-16] VITALS: Ht 162.6 cm; Wt 62.0 kg
[~2020-08-16 08:02] MED LIST changes: +ACETAMINOPHEN TAB 650MG DOSE (2X325MG) PO ONE; +OCRELIZUMAB 300 MG in NS 250 ML IV ONE; +diphenhydrAMINE 25MG CAP PO ONE; +methylPREDNISolone 125MG 2ML VIAL IV ONE
[2020-08-16 08:10] VITALS: BP 132/84
[2020-08-16] MEDS ORDERED: LYRI75CA PO (08:43)
[2020-08-16 09:15] VITALS: BP 109/71
[2020-08-16 09:45] VITALS: BP 122/78
[2020-08-16 10:15] VITALS: BP 129/77
[2020-08-16] MEDS ORDERED: diphenhydrAMINE 25MG CAP PO PRN (10:40)
[2020-08-16 11:30] VITALS: BP 121/79
== END 2020-08-16 11:30 | disposition home or self-care (01) ==
LOC: M INFU 08:02
PROVIDERS: ATTEND Psychiatry & Neurology Neurology
DX: G35 Multiple sclerosis (principal); Z88.1 Allergy status to other antibiotic agents; Z88.6 Allergy status to analgesic agent
CPT/HCPCS: 86480; 96365; 96375; J2350; J2930

== ENCOUNTER → 2020-11-04 | Outpatient (CLI) | payer MEDICARE, BC ==
[~2020-11-04] MED LIST changes: -ACETAMINOPHEN TAB 650MG DOSE (2X325MG) PO ONE; +LYRI75CA PO; -OCRELIZUMAB 300 MG in NS 250 ML IV ONE; -diphenhydrAMINE 25MG CAP PO ONE; -methylPREDNISolone 125MG 2ML VIAL IV ONE
== END ==
LOC: M PAIN 14:45
PROVIDERS: ATTEND Anesthesiology
DX: M54.2 Cervicalgia (principal); M79.602 Pain in left arm; M47.812 Spondylosis without myelopathy or radiculopathy, cervical region; G56.02 Carpal tunnel syndrome, left upper limb; G35 Multiple sclerosis; L70.9 Acne, unspecified; F32.9 Major depressive disorder, single episode, unspecified; G43.909 Migraine, unspecified, not intractable, without status migrainosus; M54.5 Low back pain; R13.10 Dysphagia, unspecified; Z79.899 Other long term (current) drug therapy; Z88.1 Allergy status to other antibiotic agents; Z88.2 Allergy status to sulfonamides; Z88.8 Allergy status to other drugs, medicaments and biological substances

== ENCOUNTER 2023-03-15 07:57 | Day surgery (SDC) | payer MEDICARE, BC ==
[~2023-03-15] VITALS: Ht 162.6 cm; Wt 65.6 kg
[~2023-03-15 07:57] MED LIST changes: +AMPH1CAP14 PO; +ARIP1TAB6 PO; +ASHW500C PO; +DUPI300I SC; +ELDE350C PO; +LIDOCAINE 2% 100MG/5ML SDV (FOR ANES.) As Ordered ONE; +MAGN100T PO; -NITR1CAP27 PO; +NITR50CA51 PO; +OMEGCAP4 PO; +ROFL60FO AU; +THERTAB52 PO; +fentaNYL 100 MCG/2 ML INJECTION As Ordered ONE; +propofoL 500 MG/50 ML VIAL As Ordered ONE
[2023-03-15] MEDS: NS 1,000 ML IV ONE (08:25)
[2023-03-15 10:05] VITALS: BP 124/88; O2SAT 100
== END 2023-03-15 10:12 | disposition home or self-care (01) ==
LOC: M OPP 07:57
PROVIDERS: ATTEND Surgery
DX: Z12.11 Encounter for screening for malignant neoplasm of colon (principal); Z86.010 Personal history of colon polyps; K63.5 Polyp of colon; K31.A19 Gastric intestinal metaplasia without dysplasia, unspecified site; K21.00 Gastro-esophageal reflux disease with esophagitis, without bleeding; Z79.620 Long term (current) use of immunosuppressive biologic; Z79.899 Other long term (current) drug therapy; Z88.6 Allergy status to analgesic agent; Z88.8 Allergy status to other drugs, medicaments and biological substances; Z91.018 Allergy to other foods
CPT/HCPCS: 43239; 45380; 88305; J3010